=== PATIENT | male | born 1935 | race Caucasian/White ===

== ENCOUNTER 2019-05-30 14:43 | Inpatient (IN) ==
[2019-05-30] MEDS ORDERED: NS 1,000 ML IV ONE (15:09)
--- NOTE | 2019-05-30 15:09 | PROVIDER DOCUMENTATION ---
HPI-Neurological Disorder - General Chief Complaint: Stroke-Like Symptoms Stated Complaint: CAN'T WALK Time Seen by Provider: 05/30/19 14:52 Source: patient Allergies/Adverse Reactions: Patient Allergies Allergy/AdvReac Type Severity Reaction Status Date / Time No Known Allergies Allergy Verified 05/30/19 15:18 Home Medications: Home Medication List Medication Instructions Recorded Confirmed Last Taken Type Allopurinol 100 mg PO BID 05/30/19 05/30/19 Unknown History Apixaban [Eliquis] 5 mg PO BID 05/30/19 05/30/19 Unknown History Dapagliflozin Propanediol [Farxiga] 10 mg PO DAILY 05/30/19 05/30/19 Unknown History Furosemide 80 mg PO DAILY 05/30/19 05/30/19 Unknown History Levothyroxine [Synthroid] 125 mcg PO DAILY 05/30/19 05/30/19 Unknown History Sacubitril/Valsartan [Entresto 49 1 ea PO BID 05/30/19 05/30/19 Unknown History mg-51 mg Tablet] Spironolactone 25 mg PO DAILY 05/30/19 05/30/19 Unknown History - History of Present Illness-Neuro Nature of Presenting Problem: 83 YOM with PMH of DM, CHF presents with initial complaints of cannot walk, upon questioning his reports that earlier this morning he was c/o back pain and shoulder pain after working out at the gym and she placed a ice pack on his back while he was sitting in the chair, aprox 30 min prior to leaving for the ER she noted the patient was talking funny and leaning to one side in the chair and unable to walk without being told which foot to step with, so she brought him in to the ER. Severity: reports: moderate Onset/Duration: reports: 1-3 hours ago Timing: reports: still present, improving Context: reports: impaired speech, facial droop (L) Approximate time patient was last seen normal?: 13:30 Character of Altered Mental Status: reports: confused (at home, has resolved at this time, pt follows commands) Character of Deficits: reports: impaired speech, decreased ability to stand, decreased ability to walk New weakness or altered sensation location:: reports: left facial Cognitive Baseline: alert, oriented x3 Gait Baseline: walks without assistance Associated Symptoms: reports: slurred speech ( reported it was a change in speech. 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 denies: see HPI, chills, fever, fatique, night sweats, weight gain, weight loss, other Eyes: reports: no symptoms reported. denies: see HPI, discharge, dry eyes, decreased vision, blurred vision, double vision, eye pain, redness, other Ears, Nose, Mouth & Throat: reports: sinus problem. denies: no symptoms reported, see HPI, ear discharge, ear pain, hearing loss, tinnitus, epistaxis, nose pain, loose teeth, mouth/dental pain, mouth swelling, hoarseness, throat pa in, throat swelling, other Cardiovascular: reports: no symptoms reported. denies: see HPI, chest pain, edema, heart murmur, irregular heart rate, orthopnea, palpitations, poor circulation, PND, syncope, other Respiratory: reports: no symptoms reported. denies: see HPI, chronic cough, cough, dyspnea on exertion, excessive sputum production, hemoptysis, pleurisy, shortness of breath, wheezing, other Gastrointestinal: denies: no symptoms reported, see HPI, abdominal pain, hematemesis, constipation, diarrhea, difficulty swallowing, frequent heartburn, nausea, poor appetite, rectal bleeding, vomiting, other Genitourinary: reports: no symptoms reported. denies: see HPI, dysuria, discharge, frequency, flank pain, frequent UTI's, hematuria, hesitency, incontinence, urinary retention, urgency, other Musculoskeletal: reports: see HPI, back pain, joint pain. denies: no symptoms reported, bone pain, frequent leg cramps, joint swelling, muscle aches, muscle weakness, neck pain, other Integumentary: reports: no symptoms reported. denies: see HPI, hives, hair loss, itching, mole changes, nail changes, rash, skin sores/ulcer, skin thickening, other Neurological: reports: see HPI, ataxia, slurred speech, other. denies: no symptoms reported, dizziness/vertigo, headache/migraines, loss of balance, numbness, paresthesia, seizure, syncope, tremors Psychiatric: reports: no symptoms reported. denies: see HPI, anxiety, anti- depressant use, alcohol/drug dependence, depression, emotional problems, insomnia, panic attacks, suicidal thoughts, other Endocrine: reports: no symptoms reported. denies: see HPI, change in skin pigment, excessive sweating, goiter, cold intolerance, heat intolerance, increased hunger, increased thirst, polyuria, other Hematologic/Lymphatic: reports: no symptoms reported. denies: see HPI, blood clots, easy bruising, low blood count, lymphedema, prolonged bleeding, swollen lymph nodes, transfusions, other Allergic/Immunologic: reports: no symptoms reported. denies: see HPI, allergic reactions, allergic rhinitis, asthma, eczema, food allergy, frequent infections, hay fever, hives, positive PPD, urticaria, other Past History - Adult - PAST MEDICAL HISTORY-ADULT Review of Records: reports: Nursing Assessment Review, Social history reviewed & non-contributory. Physical Exam- Neurological - Physical Exam-Neuro Initial Vital Signs Reviewed: Yes General Appearance: alert, no apparent distress Eye Exam: bilateral eye: normal inspection, PERRL, EOMI HENMT: normocephalic/atraumatic, moist mucous membranes, normal ENT inspection Head Injury: no evidence of injury Neck: non-tender, full range of motion, supple Respiratory: chest non-tender, lungs clear, normal breath sounds, no pleuratic chest pain, no respiratory distress, no accessory muscle use Cardiovascular: normal peripheral pulses, regular rate, rhythm, no edema, no gallop, no JVD, no murmur Abdominal Exam: normal bowel sounds, non tender, soft Lymphatic: no adenopathy Peripheral Pulses: radial (R): 2+, radial (L): 2+ Extremity: non-tender, normal inspection, no pedal edema, 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 hearing, PERRL, facial droop Motor/Sensory: no sensory deficit, no pronator drift Neurologic: grossly normal Integumentary: normal color, normal turgor, warm/dry Psych/Mental Status: normal mood/affect, other (a& o x 2) - Glascow Coma Scale Best Eye Response: (4) open spontaneously Best Verbal Response: (5) oriented Best Motor Response: (6) obeys commands Progress - PLAN OF CARE/RESULTS Progress/Plan/Lab Results: Laboratory Results - last 24 hr 05/30/19 05/30/19 05/30/19 15:01 15:05 15:05 WBC 7.26 RBC 3.88 L Hgb 13.9 L Hct 40.5 L MCV 104.4 H MCH 35.8 H MCHC 34.3 RDW Std Deviation 13.3 Plt Count 160 MPV 11.4 H Immature Gran % (Auto) 0.1 Neut % (Auto) 77.3 H Lymph % (Auto) 11.3 L [place] % (Auto) 9.6 H Eos % (Auto) 1.1 Baso % (Auto) 0.6 Immature Gran # (Auto) 0.01 Neut # (Auto) 5.61 Lymph # (Auto) 0.82 L [place] # (Auto) 0.70 H Eos # (Auto) 0.08 Baso # (Auto) 0.04 PT INR PTT (Actin FS) Sodium 130 L Potassium 4.6 Chloride 95 L Carbon Dioxide 21 L Anion Gap 15 BUN 30 H Creatinine 1.6 H Estimated GFR/1.73 m2 42 BUN/Creatinine Ratio 19 Glucose 200 H POC Glucose 179 H Calculated Osmolality 273 Calcium 8.6 L Total Bilirubin 0.80 AST 25 ALT 14 Alkaline Phosphatase 111 Troponin T High Sens Yik-E-Hccmrwkfelb Pept Total Protein 6.5 Albumin 4.1 Globulin 2.0 Albumin/Globulin Ratio 2.0 Plasma Lactate Influenza A (Rapid) Influenza B (Rapid) 05/30/19 05/30/19 05/30/19 15:05 15:05 15:05 WBC RBC Hgb Hct MCV MCH MCHC RDW Std Deviation Plt Count MPV Immature Gran % (Auto) Neut % (Auto) Lymph % (Auto) [place] % (Auto) Eos % (Auto) Baso % (Auto) Immature Gran # (Auto) Neut # (Auto) Lymph # (Auto) [place] # (Auto) Eos # (Auto) Baso # (Auto) PT 19.8 H INR 1.58 PTT (Actin FS) 37.5 Sodium Potassium Chloride Carbon Dioxide Anion Gap BUN Creatinine Estimated GFR/1.73 m2 BUN/Creatinine Ratio Glucose POC Glucose Calculated Osmolality Calcium Total Bilirubin AST ALT Alkaline Phosphatase Troponin T High Sens 24 H Unj-D-Myteflqkglv Pept 1819 H Total Protein Albumin Globulin Albumin/Globulin Ratio Plasma Lactate Influenza A (Rapid) Influenza B (Rapid) 05/30/19 05/30/19 15:30 16:15 WBC RBC Hgb Hct MCV MCH MCHC RDW Std Deviation Plt Count MPV Immature Gran % (Auto) Neut % (Auto) Lymph % (Auto) [place] % (Auto) Eos % (Auto) Baso % (Auto) Immature Gran # (Auto) Neut # (Auto) Lymph # (Auto) [place] # (Auto) Eos # (Auto) Baso # (Auto) PT INR PTT (Actin FS) Sodium Potassium Chloride Carbon Dioxide Anion Gap BUN Creatinine Estimated GFR/1.73 m2 BUN/Creatinine Ratio Glucose POC Glucose Calculated Osmolality Calcium Total Bilirubin AST ALT Alkaline Phosphatase Troponin T High Sens Jcg-E-Wjycmoadcgi Pept Total Protein Albumin Globulin Albumin/Globulin Ratio Plasma Lactate 2.2 Influenza A (Rapid) NEGATIVE Influenza B (Rapid) NEGATIVE Orders Category Date Time Status Admit - [facility] Routine AdmDCTranf 05/30/19 16:57 Active Cardiac Monitoring DIRECTED Care 05/30/19 15:01 Completed Finger Stick Blood Sugar (ED) DIRECTED Care 05/30/19 15:01 Completed Misc. NRSG Communication Order DIRECTED Care 05/30/19 15:01 Completed NEWS Score 2-4:Order NEWS Lactate Series NOW Care 05/30/19 15:27 Completed Neurological Check PRN Care 05/30/19 16:57 Active Oxygen Therapy- ED Nursing DIRECTED Care 05/30/19 15:01 Completed Saline Loc NOW Care 05/30/19 15:01 Completed Vital Signs Order Q 8-HR .ASSESS Care 05/30/19 16:57 Active Z-Document. for Tele Applied ORDERED Care 05/30/19 16:58 Completed Heart Healthy Diet Diet 05/30/19 16:58 Active CHEST-PORTABLE [RAD] Stat Exams 05/30/19 15:[address] HEAD W/O CONTRAST [CT] Stat Exams 05/30/19 15:01 Completed BNP [PRO B-NATRIURETIC PEPTIDE] Stat Lab 05/30/19 15:05 Completed CBC WITH ELECTRONIC DIFF [HEME] Stat Lab 05/30/19 15:05 Completed COMPREHENSIVE METABOLIC PANEL [CHEM] Stat Lab 05/30/19 15:05 Completed Flu [INFLUENZA SCREEN PL] Stat Lab 05/30/19 15:30 Completed LACTATE, PLASMA [CHEM] Lab 05/30/19 16:15 Completed LACTATE, PLASMA [CHEM] Lab 05/30/19 20:16 Completed LACTATE, PLASMA [CHEM] Lab 05/30/19 21:45 Completed PROTIME WITH INR [COAG] Stat Lab 05/30/19 15:05 Completed PTT [COAG] Stat Lab 05/30/19 15:05 Completed TROPONIN T HIGH SENSITIVITY Stat Lab 05/30/19 15:05 Completed URINALYSIS W/POSS RFLX CULT [URINALYSIS] Stat Lab 05/31/19 13:[address] DRUG SCREEN [address] Stat Lab 05/31/19 13:07 Ordered 0.9% Sodium Chloride Inj [Ns] 1,000 ml Med 05/30/19 15:09 Discontinued IV 999 mls/hr Telemetry [OM.EQ] Routine Oth 05/30/19 16:57 Active EKG [EKG] Stat Ther 05/30/19 15:01 Draft Transfer/Admit Order [TRANSFER] Routine Transfer 05/30/19 16:58 Completed 1515: Dr. Giron to bedside 1530: pt is on eliquis BID not a canidate for TPA, due to this and symptoms improving Result Diagrams: 05/31/19 09:38 05/31/19 09:38 - EKG 1 Time of EKG reading by physician:: 14:55 EKG Read and Signed by:: Rosmery Giron EKG Interpretation (*Must complete 3 of following elements*): Abnormal Rate: 70 Rhythm: V-pacer rythm Prior EKG Comparison: no prior EKG - XRAY 1 XRAY Study: Chest Impression: See EMR Report (CHEST-PORTABLE - 05/30/2019 INDICATION: stroke like symptoms COMPARISON: 05/02/2019 FINDINGS: Stable left-sided biventricular pacemaker. Stable mild cardiomegaly. Pulmonary vascularity is top normal. No infiltrates or edema. No pneumothorax or pleural effusion. IMPRESSION: Cardiomegaly. Electronically signed by Jasbir Haque 05/30/2019 3:40 PM 05/30/19 1540 Interpreting Physician: Jasbir Haque MD Dictated Date/Time: 05/30/19 1539 cc: Ileana Reynoso; Joe Martinez MD) - CT/MRI 1 CT Study: Head Impression: See EMR Report (CT HEAD W/O CONTRAST - 05/30/2019 INDICATION: Left facial droop COMPARISON: 07/11/2012 FINDINGS: The ventricles and sulci are normal in size and contour. No intracranial mass or hemorrhage. The skull is intact. The sinuses mastoids and middle ears are clear. IMPRESSION: Negative exam. This exam was performed using automated exposure control, adjustment of mA or kV according to patient size, and/or use of iterative reconstruction technique Electronically signed by Jasbir Haque 05/30/2019 3:39 PM 05/30/19 1539 Interpreting Physician: Jasbir Haque MD Dictated Date/Time: 05/30/19 1538 cc: Ileana Reynoso; Joe Martinez MD) - CONSULTS/PCP/HOSPITALIST Notification #1 *Consult/PCP/Hospitalist*: Dr. Martinez Time Discussed: 16:38 Consult Disposition: Admit (NO IVF, MD to do home medications,) Departure - Departure Date of Disposition Decision: 05/30/19 Time of Disposition Decision: 16:38 DIAGNOSIS: CKD (chronic kidney disease), Hyponatremia, Stroke-like symptom, Hypotension Disposition: ADMITTED INPATIENT 09 Certified Medical Emergency: Emergent Condition: Stable - Critical Care Note This patient required my direct & personal management of CC.: No Attestation - Physician/ MELODY Attestation Patient care was provided by Advanced Practice Provider:: Yes Advanced Practice Provider:: Ileana Reynoso Advanced Practice Provider documentation review:: The Mid-level provider documentation, treatment plan and medical decision making was reviewed by the physician who agrees with all treatment and medical decision making by the MLP. The physician spent face to face time with patient:: No Advanced Practice Provider documentation review:: Supervising physician onsite and consulted in the evaluation and care of this patient. The physician did not have a face to face encounter with the patient. - NIH Stroke Scale NIH Type: Initial Evaluation Level of Consciousness: 0-Alert LOC Questions (ask month and age): 0-Answers Both Correctly LOC Commands (ask to open & close eyes;make a fist, let go): 0-Obeys Both Correctly Best Gaze (horizontal eye movement): 0-Normal Visual (use finger movement, counting or visual threat): 0-No Visual Loss Facial Palsy (show teeth or raise eyebrows & close eyes tght: 1-Minor Paralysis Motor Function-left arm: 0-Normal Motor Function-right arm: 0-Normal Motor Function-left le-Drift Motor Function-right le-Drift Limb Ataxia(wzmxhp-tmgr-dzadcu, or heel to shafer): 1-Present in one limb Sensory(pin prick to face,arms,trunk,legs-compare side/side): 0-No Ataxia Best Language(name item/read sentence.Ex-Down to Earth): 0-No Aphasia Dysarthria(Pt read words or say words Ex.Mama,Tip-Top,Thanks: 0-Normal Articulation Extinction and Inattention: 0-Normal NIH Total Score: 3 Stroke tPA Guidelines - Inclusion Criteria for IV tPA 18 years old or older: Yes Ischemic stroke with measurable deficit: Yes Onset <3 hours ago *OR* 3-4.5 hours ago: Yes - Exclusion Criteria for IV tPA Evidence of intracranial hemorrhage on CT: No Presentation suggest SAH: No Seizure at stroke onset: No Active internal bleeding or acute trauma: No Heparin Within Last 48 HRS (PTT >Lab normal limits): No INR > 1.7 (warfarin use): No Use IIB/IIIA inhibitors within 24 hours: Yes
[2019-05-30 15:28] LABS: BASO# 0.04 X1000 (0.0-0.2); BASO% 0.6 % (0.0-0.8); EOS# 0.08 X1000 (0.0-0.7); EOS% 1.1 % (0.0-10.0); HEMATOCRIT 40.5 % (42.0-52.0); HEMOGLOBIN 13.9 g/dL (14.0-18.0); IMM GRAN# 0.01 X1000 (0.0-0.04); IMM GRAN% 0.1 % (0.0-0.5); LYMPH# 0.82 X1000 (1.2-3.4); LYMPH% 11.3 % (20.5-51.1); MCH 35.8 PG (27-31); MCHC 34.3 g/dL (33-37); MCV 104.4 FL (81-99); MONO% 9.6 % (1.7-9.3); MPV 11.4 FL (7.4-10.4); NEUT# 5.61 X1000 (1.4-6.5); NEUT% 77.3 % (42.2-75.2); PLT 160 X1000 (130-400); RBC 3.88 XMIL (4.7-6.1); RDW 13.3 % (11.5-14.5); WBC 7.26 X1000 (4.8-10.8)
[2019-05-30 15:36] LABS: INR 1.58; PROTIME 19.8 Seconds (11.0-16.0)
[2019-05-30 15:37] LABS: PTT 37.5 Seconds (22.3-41.8)
[2019-05-30 15:38] LABS: ALBUMIN 4.1 g/dL (3.5-5.0); CALCIUM 8.6 mg/dL (8.8-10.2); CREATININE 1.6 mg/dL (0.7-1.2); POTASSIUM 4.6 mmol/L (3.5-5.1); TOTAL BILIRUBIN 0.8 mg/dL (0.20-1.00); TOTAL PROTEIN 6.5 g/dL (6.3-8.3)
--- NOTE | 2019-05-30 15:42 | Diag Imaging Result Doc PS360 ---
CHEST-PORTABLE - 05/30/2019 INDICATION: stroke like symptoms COMPARISON: 05/02/2019 FINDINGS: Stable left-sided biventricular pacemaker. Stable mild cardiomegaly. Pulmonary vascularity is top normal. No infiltrates or edema. No pneumothorax or pleural effusion. IMPRESSION: Cardiomegaly. Electronically signed by Jasbir Haque 05/30/2019 3:40 PM
--- NOTE | 2019-05-30 15:42 | Diag Imaging Result Doc PS360 ---
CT HEAD W/O CONTRAST - 05/30/2019 INDICATION: Left facial droop COMPARISON: 07/11/2012 FINDINGS: The ventricles and sulci are normal in size and contour. No intracranial mass or hemorrhage. The skull is intact. The sinuses mastoids and middle ears are clear. IMPRESSION: Negative exam. This exam was performed using automated exposure control, adjustment of mA or kV according to patient size, and/or use of iterative reconstruction technique Electronically signed by Jasbir Haque 05/30/2019 3:39 PM
--- NOTE | 2019-05-30 16:06 | EKG Report ---
Test Performed on : 05/30/2019 2:52:09 PM Test Reason : stroke like symptoms Blood Pressure : / mmHG Vent. Rate : 070 BPM Atrial Rate : 044 BPM P-R Int : 000 ms QRS Dur : 162 ms QT Int : 454 ms P-R-T Axes : 000 233 059 degrees QTc Int : 490 ms Ventricular-paced rhythm Abnormal ECG No previous ECGs available Unconfirmed Result
[2019-05-30 16:24] LABS: INFLUENZA A NEGATIVE (NEGATIVE); INFLUENZA B NEGATIVE (NEGATIVE)
[2019-05-30] MEDS: ZYLOPRIM PO SCH (21:45)
[2019-05-30] MEDS: ELIQUIS PO SCH (21:45)
[2019-05-30] MEDS ORDERED: ROCEPHIN 1 GM in NS 50 ML IV SCH (23:30)
[2019-05-30 23:31] LABS: INR 1.76; PROTIME 21.5 Seconds (11.0-16.0)
[2019-05-30 23:32] LABS: PTT 40.4 Seconds (22.3-41.8)
[2019-05-31 00:09] LABS: CK INDEX 0.7 (0.0-2.5); CK-MB 1.77 ng/mL (0.0-5.0)
[2019-05-31] MEDS ORDERED: ALDACTONE PO SCH (09:00)
[2019-05-31] MEDS ORDERED: NON-FORMULARY MED PO SCH ×2 (09:00)
[2019-05-31] MEDS ORDERED: ENTRESTO 49 MG-51 MG TABLET PO SCH (09:00)
[2019-05-31] MEDS ORDERED: LASIX PO SCH (09:00)
[2019-05-31] MEDS ORDERED: SYNTHROID PO SCH ×3 (09:00→10:00)
[2019-05-31] MEDS: ZYLOPRIM PO SCH (09:14)
[2019-05-31] MEDS: ELIQUIS PO SCH (09:14)
[2019-05-31 09:53] LABS: BASO# 0.06 X1000 (0.0-0.2); BASO% 0.6 % (0.0-0.8); EOS% 3.1 % (0.0-10.0); HEMATOCRIT 39.3 % (42.0-52.0); HEMOGLOBIN 13.1 g/dL (14.0-18.0); IMM GRAN# 0.02 X1000 (0.0-0.04); IMM GRAN% 0.2 % (0.0-0.5); LYMPH# 2.19 X1000 (1.2-3.4); LYMPH% 22.3 % (20.5-51.1); MCH 35.3 PG (27-31); MCHC 33.3 g/dL (33-37); MCV 105.9 FL (81-99); MONO# 1.63 X1000 (0.11-0.59); MONO% 16.6 % (1.7-9.3); MPV 11.1 FL (7.4-10.4); NEUT# 5.61 X1000 (1.4-6.5); NEUT% 57.2 % (42.2-75.2); PLT 128 X1000 (130-400); RBC 3.71 XMIL (4.7-6.1); RDW 13.3 % (11.5-14.5); WBC 9.81 X1000 (4.8-10.8)
[2019-05-31 09:57] LABS: ALBUMIN 3.5 g/dL (3.5-5.0); CALCIUM 8.4 mg/dL (8.8-10.2); CREATININE 1.5 mg/dL (0.7-1.2); POTASSIUM 4.2 mmol/L (3.5-5.1); TOTAL BILIRUBIN 0.7 mg/dL (0.20-1.00); TOTAL PROTEIN 6.1 g/dL (6.3-8.3)
[2019-05-31] MEDS ORDERED: ENTRESTO 24 MG-26 MG TABLET PO SCH (10:00)
[2019-05-31 11:35] LABS: LYMPHS 20 % (21-51); MONO 10 % (1-9); SEGS 70 % (42-75)
[2019-05-31 12:11] VITALS: BP 98/39
[2019-05-31 13:50] LABS: URINE SOURCE CLEAN CATCH
[2019-05-31 13:51] LABS: BILIRUBIN URINE NEGATIVE (NEGATIVE); BLOOD URINE NEGATIVE (NEGATIVE); COLOR YELLOW; GLUCOSE URINE >1000 mg/dL (NEGATIVE); KETONE URINE NEGATIVE (NEGATIVE); LEUKOCYTES URINE TRACE (NEGATIVE); NITRITE URINE NEGATIVE (NEGATIVE); PH URINE 6.5; PROTEIN URINE TRACE mg/dL (NEGATIVE); SP GRAVITY URINE 1.018; TURBIDITY URINE CLEAR (CLEAR); UROBILINOGEN URINE NORMAL (NORMAL)
[2019-05-31 13:52] LABS: UR EPITHELIAL CELLS <10 /HPF (<10); URINE BACTERIA NEGATIVE /HPF; URINE RBC <10 /HPF (<10); URINE WBC <10 /HPF (<10)
--- NOTE | 2019-06-23 14:46 | DISCHARGE SUMMARY ---
ADMISSION DATE: 05/30/2019 DISCHARGE DATE: 05/31/2019 HISTORY OF PRESENT ILLNESS: This is a patient of mine in the office who had a history of hypertension, CHF, with a pacer defibrillator for a low ejection fraction, history of atrial fibrillation, type 2 diabetic well controlled without complications, thyroid supplemental hormones that had been normal. He presented to the ER on 2 occasions. On 05/30/2019 came in, had been working out in the gym that he was accustomed to doing low impact exercises and then on the way home started having some back pain. His was icing him down and then she noticed he had problems walking and having speech problems. She brought him over to the ER. In the process of evaluating him later that day, he had some difficulty walking and speaking and maybe some weakness on his left side. On admission, he was afebrile, pulse was 70, and it may be from his pacer. Respiratory rate was 19 and 26. Blood pressure 97/51, 87/41. Room air saturations were 98%. When I arrived, he had already corrected himself. He was no longer slurring his speech. He was a little ataxic, hard to get around. Typical change, but in a matter of hours, he was sort of asymptomatic. DATABASE: He had a head CT which was negative. He had a chest x-ray that showed left-sided biventricular pacemaker, stable mild cardiomegaly. Pulmonary vascular is top normal. No infiltrates or edema. His telemetry strips were regular, wide based QRS tachycardia at times. He had a routine EKG which showed ventricular paced rhythm, otherwise negative. His vital signs were stable. His symptoms resolved. We discharged him from the hospital back to his normal self on the same medications. We will see him in the office and see if we could see what his carotids showed, and elected to do this as an outpatient at next visit. DIAGNOSES: 1. Transient ischemic attack. 2. Ischemic heart disease. 3. Hypertension. 4. Chronic congestive heart failure. 5. Type 2 diabetes. 6. Thyroid disease. 7. Hypertension. 8. Dyslipidemia. 9. Gout.
--- NOTE | 2019-06-23 15:13 | HISTORY AND PHYSICAL ---
HISTORY OF PRESENT ILLNESS: This is an 83-year-old patient, born 1935, who presented to the Emergency Room the night of admission with complaints of not being able to walk. Upon questioning, his reports are that earlier this morning, he was complaining of some back pain and shoulder pain after working out in the gym, a kind of low impact workout. She subsequently placed an ice pack on his back while he was sitting in the car; approximately 30 minutes prior to leaving for the ER, the patient was talking funny and leaning to one side in the chair, unable to walk without being told which foot to step with. So she brought him back to the ER. These symptoms began approximately 1 to 3 hours from the first visit to the ER, but he still seemed to have these symptoms that developed while he was at home but they seemed to be improving. He had what appeared to be impaired, slurred speech, maybe a facial asymmetry with a droop maybe on the left. By the time he was seen again in the ER, he was normal. His reports he was confused at home. This likewise has resolved. He follows commands. He has some impaired speech and decreased ability to stand and walk. He had some altered numbing sensation on the left face. Otherwise, he was oriented x 3 when I saw him, walking without any assistance. ALLERGIES: He has no known allergies. MEDICATIONS: Allopurinol 100 mg p.o. b.i.d.; Eliquis 5 mg p.o. b.i.d.; Farxiga 10 mg daily; furosemide 80 mg daily, he sometimes varies that; levothyroxine 125 mcg per day; and Entresto 49/51, along with spironolactone 25 mg daily. PAST MEDICAL HISTORY: He has had a history of heart disease, high blood pressure, some chronic ischemic congestive failure. He has a little touch of diabetes, not significant. He does not have any microscopic complications or macroscopic complications from his diabetes. His heart failure medicines are supplied by me and also reviewed by the [facility] at [facility]. We follow his thyroid here. REVIEW OF SYSTEMS: He denied any previous TIA type symptoms which would sound like what he had this time. He has some chronic congestive heart failure. He can exercise. He is probably [place] [employer] stage III class on his CHF. He has some atrial arrhythmias. He is on anticoagulant therapy for A-fib. Eyes: Pupils equal, round and reactive to light. Extraocular movements intact. No change in visual acuity or field cuts. Ears, nose and throat: No sinusitis, rhinitis, otitis. Cardiovascular: He denies chest pain. He has had some occasional edema in his lower extremities. No true PND. No significant carotid disease. Respiratory: No chronic cough, shortness of breath, wheezing. He is short of breath with activity. Gastrointestinal: No nausea, vomiting, diarrhea or constipation, bloody or black tarry stools. Genitourinary: Other than some slow stream and nocturia and some urgency, otherwise negative. Musculoskeletal: He has some chronic back pain and joint pain that may have been aggravated earlier in the day with his exercising program. Skin: No rashes, no lesions, no moles, no irritation. Neurological: He had the aforementioned ataxic slurred speech issues that resolved prior to me seeing him. Psychiatric: Negative. Endocrine: He is on thyroid hormone replacement, doing well. He is on diabetic medicines likewise. He is on blood thinners but no bleeding, bruising. Allergies: No significant allergies. PHYSICAL EXAMINATION: VITAL SIGNS: On admission, his vital signs taken in the ER showed that he had relatively low blood pressures that range in the 95 to 105 range, respiratory rate 12. He is afebrile. Pulse is not fast, somewhat irregular. His initial vital signs during this hospital stay was he was afebrile. Pulses were in the 70s. Respiratory rate was between 19 and 26. Blood pressures were all upper 90s. Oxygen saturation on room air is fine. HEENT: On admission, head was normocephalic. Eyes: Pupils equal, round and reactive to light. Extraocular movements intact. Sclerae clear. No obvious facial droopiness to me. Lids were negative. Oropharynx negative. Uvula midline. NECK: No carotid bruits were palpable. No lymphadenopathy. 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 CHEST: Bilaterally clear breath sounds. CARDIOVASCULAR: Heart rate controlled at 63 with some ectopy. ABDOMEN: Soft. No hepatosplenomegaly. No CVA tenderness. EXTREMITIES: Had some 1+ edema in stocking distribution of both legs. LABORATORY DATA: His initial labs showed 2 negative flu tests. Troponins were negative. Alkaline phosphatase was negative. Total protein and globulin, albumin were negative. Liver functions normal. His plasma lactase was 2.2. Troponin was a little high at 24. ProBNP was 1819. INR was 1.58. On CBC, white count was normal, hematocrit was 40, platelet count was 160. Sodium 130, potassium 4.6, chloride 95, CO2 was 21, BUN 30, creatinine 1.6, estimated GFR 42. BUN:creatinine ratio is 19. ADMITTING DIAGNOSES: 1. Probable transient ischemic attack. 2. History of ischemic heart disease. 3. History of congestive heart failure. 4. History of atrial fibrillation. He is admitted to the hospital for evaluation. cc: Joe Martinez MD
== END 2019-05-31 14:55 | disposition home or self-care (01) | DRG 69 ==
LOC: P.ED 14:43 → P.MEDSURG 17:54
PROVIDERS: ADMIT Internal Medicine; ATTEND Internal Medicine